=== PATIENT | female | born 1965 | race Caucasian/White ===

== ENCOUNTER 2024-05-07 17:12 | Emergency (ER) | payer MEDICAID, OTHER ==
[2024-05-07 18:13] LABS: Absolute Basophils 0.1 K/uL (0-0.5); Absolute Eosinophils 0.2 K/uL (0-0.5); Absolute Lymphocytes (CBC) 4.1 K/uL (0.7-4.9); Absolute Monocytes 1.2 K/uL (0.1-1.3); Absolute Neutrophil 9.8 K/uL (1.8-8.0); Basophils % 0.8 % (0-1.3); Eosinophils % 1.5 % (0-4.4); Hematocrit 39.2 % (36.0-45.0); Hemoglobin 13.3 g/dL (12.0-15.0); Lymphocytes % 26.4 % (15.3-44.8); MCH 30.9 pg (27.0-35.0); MCHC 33.8 g/dL (32.0-36.0); MCV 91.3 fL (80-100); Monocytes % 7.6 % (3.3-12.3); Neutrophils % 63.7 % (41.7-73.7); Platelets 343 thou/uL (152-406); RBC Red Blood Cell Count 4.29 M/uL (3.86-4.86); Red Cell Distribution Width 13.6 % (12.1-15.2)
[2024-05-07 18:28] LABS: Anion Gap 5.6 mEq/L (5.0-15.0); Potassium 3.6 mEq/L (3.5-5.1); Troponin High Sensitivity 4.3 pg/mL (<58.9)
[2024-05-07] MEDS ORDERED: NA CHLORIDE 0.9% 1,000 ML ONE (18:39)
--- NOTE | 2024-05-07 19:24 | EDPHYS ---
Physician Documentation [facility] Name: Barbara Tesfaye Age: 59 yrs Sex: Female : 1965 Arrival Date: 05/07/2024 Time: 17:12 Bed 6 Private MD: ED Physician Unique Simeon HPI: 05/07 18:29 This 59 yrs old Female presents to ER via EMS with complaints of dizziness. gb1 18:29 59-year-old female with dizziness for the last 2 to 3 months. Patient is a history of gb1 hypertension, diabetes, bipolar and hyperlipidemia,. Patient was sent from urgent care for evaluation for dizziness. She states when she stands up that she feels more dizzy. She is on 3 blood pressure medications for which she is compliant.. 18:29 Patient stated that before she went to the urgent care to get evaluated today her blood gb1 pressure at home was in the 80s systolic.. Historical: - Allergies: 17:28 No Known Allergies; ap3 - PMHx: 17:28 Hypertensive disorder; Diabetes mellitus; Bipolar disorder; Hypercholesterolemia; ap3 - Immunization history:: Adult Immunizations unknown. - Infectious Disease History:: Denies. - Social history:: Smoking status: Patient reports the use of cigarette tobacco products, smokes one pack cigarettes per day. Exam: 18:29 Constitutional: This is a well developed, well nourished patient who is awake, alert, gb1 and in no acute distress. Head/Face: Normocephalic, atraumatic. Eyes: Pupils equal round and reactive to light, extra-ocular motions intact. Lids and lashes normal. Conjunctiva and sclera are non-icteric and not injected. Cornea within normal limits. Periorbital areas with no swelling, redness, or edema. ENT: Nares patent. No nasal discharge, no septal abnormalities noted. Tympanic membranes are normal and external auditory canals are clear. Oropharynx with no redness, swelling, or masses, exudates, or evidence of obstruction, uvula midline. Mucous membranes moist. Neck: Trachea midline, no thyromegaly or masses palpated, and no cervical lymphadenopathy. Supple, full range of motion without nuchal rigidity, or vertebral point tenderness. No Meningismus. Chest/axilla: Normal chest wall appearance and motion. Nontender with no deformity. No lesions are appreciated. Cardiovascular: Regular rate and rhythm with a normal S1 and S2. No gallops, murmurs, or rubs. Normal PMI, no JVD. No pulse deficits. Respiratory: Lungs have equal breath sounds bilaterally, clear to auscultation and percussion. No rales, rhonchi or wheezes noted. No increased work of breathing, no retractions or nasal flaring. Abdomen/GI: Soft, non-tender, with normal bowel sounds. No distension or tympany. No guarding or rebound. No evidence of tenderness throughout. Back: No spinal tenderness. No costovertebral tenderness. Full range of motion. Skin: Warm, dry with normal turgor. Normal color with no rashes, no lesions, and no evidence of cellulitis. MS/ Extremity: Pulses equal, no cyanosis. Neurovascular intact. Full, normal range of motion. Neuro: Awake and alert, GCS 15, oriented to person, place, time, and situation. Cranial nerves II-XII grossly intact. Motor strength 5/5 in all extremities. Sensory grossly intact. Cerebellar exam normal. Normal gait. Vital Signs: 17:26 BP 108 / 80; Pulse 82; Resp 17; Temp 98.4(O); Pulse Ox 95% on R/A; Weight 88.9 kg; ap3 Height 5 ft. 6 in. ; 18:35 BP 114 / 73; Pulse 77; ap3 18:40 BP 110 / 82; Pulse 84; ap3 18:43 BP 94 / 65; Pulse 88; ap3 17:26 Body Mass Index 31.63 (88.90 kg, 167.64 cm) ap3 MDM: 17:24 Medical Screening Exam initiated gb1 18:29 Data reviewed: vital signs, nurses notes. ED course: 59-year-old female here gb1 with peripheral vertigo symptoms. She has a history of hypertension, diabetes bipolar and hyperlipidemia. Patient at this time has no focal neurological deficits I did consider posterior stroke she had negative CT scans at the urgent care and her labs are also normal I will do orthostatics as I do think she is becoming somewhat hypotensive at home with these episodes. She does have a follow-up with her sales development executive and I do recommend a medication reconciliation as soon as possible.. 18:45 ED course: Patient has positive orthostatic vital signs. I will hydrate her and gb1 discharged her home.. 05/07 17:47 Order name: Basic Metabolic Panel; Complete Time: 18:29 ap3 05/07 17:47 Order name: CBC with Diff; Complete Time: 18:29 ap3 05/07 17:47 Order name: Troponin HS; Complete Time: 18:29 ap3 05/07 17:47 Order name: EKG; Complete Time: 17:47 ap3 05/07 17:47 Order name: Cardiac monitoring; Complete Time: 18:06 ap3 05/07 17:47 Order name: EKG - Nurse/Tech; Complete Time: 18:49 ap3 05/07 17:47 Order name: IV Saline Lock; Complete Time: 17:47 ap3 05/07 17:47 Order name: Labs collected and sent; Complete Time: 18:06 ap3 05/07 17:47 Order name: O2 Per Protocol; Complete Time: 17:47 ap3 05/07 17:47 Order name: O2 Sat Monitoring; Complete Time: 17:47 ap3 05/07 17:59 Order name: Orthostatic Blood Pressure; Complete Time: 18:42 gb1 Administered Medications: 18:42 Drug: NS 0.9% IV 1000 ml IV at 1000 ml once; to be given as a bolus over 60 minutes ap3 Route: IV; Rate: 1000 ml; Site: left antecubital; Disposition Summary: 05/07/24 19:23 Discharge Ordered Notes: Location: Home gb1 Problem: an acute exacerbation gb1 Symptoms: have improved gb1 Condition: Stable gb1 Diagnosis - Orthostatic hypotension gb1 Followup: gb1 - With: Private Physician - When: - Reason: Continuance of care Discharge Instructions: - Discharge Summary Sheet gb1 - Near-Syncope gb1 - Orthostatic Hypotension gb1 Forms: - Medication Reconciliation Form gb1 - Antibiotic Education gb1 - Prescription Opioid Use gb1 - Patient Portal Instructions gb1 - Leadership Thank You Letter gb1 Signatures: Dispatcher [employer] Jessica Razo RN RN ap3 Unique Simeon MD MD gb1
--- NOTE | 2024-05-07 19:24 | ER ---
Nurse's Notes [facility] Name: Barbara Tesfaye Age: 59 yrs Sex: Female : 1965 Arrival Date: 05/07/2024 Time: 17:12 Bed 6 Private MD: Diagnosis: Orthostatic hypotension Presentation: 05/07 17:26 Chief complaint: EMS states: patient was transferred from [facility] in need of an MRI. ap3 patient complains of dizziness and weakness that she reports started months ago, but has gotten worse over the last week. Coronavirus screen: At this time, the client does not indicate any symptoms associated with coronavirus-19. Ebola Screen: No symptoms or risks identified at this time. Initial Sepsis Screen: Does the patient meet any 2 criteria? No. Patient's initial sepsis screen is negative. Does the patient have a suspected source of infection? No. Patient's initial sepsis screen is negative. Risk Assessment: Do you want to hurt yourself or someone else? Patient reports no desire to harm self or others. Onset of symptoms is unknown. Care prior to arrival: IV initiated. 20 GA, in the left antecubital area. Transition of care: patient was received from another setting of care (hospital), [facility]. 17:26 Method Of Arrival: EMS: [facility] ap3 17:26 Acuity: GIOVANI 3 ap3 Triage Assessment: 17:31 General: Appears in no apparent distress. Behavior is calm, cooperative, appropriate ap3 for age. Pain: Complains of pain in back. Neuro: Level of Consciousness is awake, alert, obeys commands, Oriented to person, place, time, situation, Appropriate for age Reports dizziness, weakness. Cardiovascular: Patient's skin is warm and dry. Respiratory: Airway is patent Respiratory effort is even, unlabored, Respiratory pattern is regular, symmetrical. Historical: - Allergies: 17:28 No Known Allergies; ap3 - PMHx: 17:28 Hypertensive disorder; Diabetes mellitus; Bipolar disorder; Hypercholesterolemia; ap3 - Immunization history:: Adult Immunizations unknown. - Infectious Disease History:: Denies. - Social history:: Smoking status: Patient reports the use of cigarette tobacco products, smokes one pack cigarettes per day. Screenin:32 [facility] ED Fall Risk Assessment (Adult) History of falling in the last 3 months, ap3 including since admission No falls in past 3 months (0 pts) Confusion or Disorientation No (0 pts) Intoxicated or Sedated No (0 pts) Impaired Gait No (0 pts) Mobility Assist Device Used No (0 pt) Altered Elimination No (0 pt) Score/Fall Risk Level 0 - 2 = Low Risk Oriented to surroundings, Maintained a safe environment, Educated pt \T\ family on fall prevention, incl call for assistance when getting out of bed, Assessed \T\ reinforced patient's understanding of fall precautions, Hourly rounding (assess needs \T\ fall precautionary measures) done, Used ambulatory aids as needed (educated on \T\ assisted with). Abuse screen: Denies threats or abuse. Nutritional screening: No deficits noted. Tuberculosis screening: No symptoms or risk factors identified. Assessment: 20:00 Reassessment: Patient and/or family updated on plan of care and expected duration. Pain ha1 level reassessed. Patient is alert, oriented x 3, equal unlabored respirations, skin warm/dry/pink. Vital Signs: 17:26 BP 108 / 80; Pulse 82; Resp 17; Temp 98.4(O); Pulse Ox 95% on R/A; Weight 88.9 kg; ap3 Height 5 ft. 6 in. ; 18:35 BP 114 / 73; Pulse 77; ap3 18:40 BP 110 / 82; Pulse 84; ap3 18:43 BP 94 / 65; Pulse 88; ap3 17:26 Body Mass Index 31.63 (88.90 kg, 167.64 cm) ap3 ED Course: 17:15 Patient arrived in ED. ty 17:24 nUique Simeon MD is Attending Physician. gb1 17:26 Jessica Scott, MARISOL is Primary Nurse. ap3 17:28 Triage completed. ap3 17:32 Arm band placed on right wrist. ap3 19:00 Patient has correct armband on for positive identification. Bed in low position. Call ha1 light in reach. Side rails up X 1. 20:00 Provided Education on: FOLLOW [employer] . ha1 20:00 No provider procedures requiring assistance completed. ha1 20:00 IV discontinued, intact, bleeding controlled, No redness/swelling at site. Pressure ha1 dressing applied. Administered Medications: 18:42 Drug: NS 0.9% IV 1000 ml IV at 1000 ml once; to be given as a bolus over 60 minutes ap3 Route: IV; Rate: 1000 ml; Site: left antecubital; Medication: 20:00 VIS not applicable for this client. ha1 Outcome: 19:23 Discharge ordered by . gb1 20:00 Discharged to home ambulatory, ha1 20:00 Condition: stable 20:00 Discharge instructions given to patient, Instructed on discharge instructions, follow up and referral plans. Demonstrated understanding of instructions, follow-up care, 21:12 Patient left the ED. ha1 Signatures: Jessica Scott RN RN ap3 Stephanie Brennan RN RN ha1 Unique Simeon MD MD gb1 Luis Schroeder
[2024-05-07 21:25] VITALS: TEMP 98.4; O2SAT 95
[2024-05-07 21:28] VITALS: BP 94/65
--- NOTE | 2024-05-10 12:08 | EKG ---
Test Date: 2024-05-07 Test Time: 18:42:20 [employer]: ART MEASUREMENT RESULTS: Intervals: Rate: 71 NJ: 140 QRSD: 82 QT: 402 QTc: 436 [place]: P: 8 NJ: 140 QRS: -2 T: 49 INTERPRETIVE STATEMENTS: Demand pacemaker, interpretation is based on intrinsic rhythm Sinus rhythm with occasional premature ventricular complexes Otherwise normal ECG No previous ECG available for comparison Electronically Signed On 05-10-24 12:02:17 CDT by Marcos Cabral
== END 2024-05-07 21:12 | disposition home or self-care (01) ==
LOC: ER 17:12
DX: I95.1 Orthostatic hypotension (principal); E11.9 Type 2 diabetes mellitus without complications; I10 Essential (primary) hypertension; F17.210 Nicotine dependence, cigarettes, uncomplicated
CPT/HCPCS: 93005; 85025; 80048; 36415; 84484; 99284; J7030